=== PATIENT | female | born 1930 | race Caucasian/White ===

== ENCOUNTER 2018-06-23 16:16 | Observation (INO) ==
[2018-06-23] MEDS ORDERED: NS 500 ML IV SCH (19:45)
[2018-06-23 19:54] LABS: MCH 19.8 PG (27-31); MCHC 27.1 g/dL (33-37); MPV 9.4 FL (7.4-10.4); RBC 2.63 XMIL (4.2-5.4); RDW 18.3 % (11.5-14.5); WBC 5.64 X1000 (4.8-10.8)
[2018-06-23 19:55] LABS: HEMOGLOBIN 5.2 g/dL (12.0-16.0)
[2018-06-23 19:56] LABS: HEMATOCRIT 19.2 % (37.0-47.0)
[2018-06-24 00:32] LABS: URINE SOURCE CLEAN CATCH
[2018-06-24 00:42] LABS: BILIRUBIN URINE NEGATIVE (NEGATIVE); BLOOD URINE NEGATIVE (NEGATIVE); COLOR YELLOW; GLUCOSE URINE NEGATIVE (NEGATIVE); KETONE URINE NEGATIVE (NEGATIVE); LEUKOCYTES URINE MODERATE (NEGATIVE); NITRITE URINE POSITIVE (NEGATIVE); PROTEIN URINE TRACE mg/dL (NEGATIVE); SP GRAVITY URINE 1.019; TURBIDITY URINE CLEAR (CLEAR); UR EPITHELIAL CELLS <10 /HPF (<10); URINE BACTERIA 4+ /HPF; URINE RBC <10 /HPF (<10); URINE WBC 20-40 /HPF (<10); UROBILINOGEN URINE NORMAL (NORMAL)
[2018-06-24 09:00] LABS: BASO# 0.09 X1000 (0.0-0.2); BASO% 1.4 % (0.0-0.8); EOS% 3.2 % (0.0-10.0); HEMOGLOBIN 7.7 g/dL (12.0-16.0); LYMPH# 0.63 X1000 (1.2-3.4); LYMPH% 10.1 % (20.5-51.1); MCH 20.4 PG (27-31); MCHC 28.5 g/dL (33-37); MCV 71.6 FL (81-99); MONO# 0.64 X1000 (0.11-0.59); MONO% 10.3 % (1.7-9.3); MPV 9.2 FL (7.4-10.4); NEUT# 4.68 X1000 (1.4-6.5); PLT 312 X1000 (130-400); RBC 3.77 XMIL (4.2-5.4); RDW 18.1 % (11.5-14.5); WBC 6.24 X1000 (4.8-10.8)
[2018-06-24 09:22] LABS: EOS 4 % (1-10); LYMPHS 10 % (21-51); MONO 8 % (1-9); SEGS 78 % (42-75)
[2018-06-24 09:23] LABS: MICROCYTOSIS OCCASIONAL
[2018-06-24 09:24] LABS: HYPOCHROM 1+; STOMATOCYTES OCCASIONAL; TARGET CELLS OCCASIONAL
[2018-06-24 12:38] LABS: AGAP 9; ALB/GLOB RATIO 1.7; ALBUMIN 3.6 g/dL (3.5-5.0); ALKALINE PHOSPHATASE 81 U/L (32-104); BUN 17 mg/dL (8-22); CALCIUM 8.3 mg/dL (8.8-10.2); CHLORIDE 105 mmol/L (98-107); COSMO 277; CREATININE 0.7 mg/dL (0.5-0.9); ESTIMATED GFR > 60; GLUCOSE 91 mg/dL (70-104); GOT 13 U/L (10-30); GPT 7 U/L (10-36); POTASSIUM 4.2 mmol/L (3.5-5.1); SODIUM 138 mmol/L (136-145); TCO2 24 mmol/L (25-35); TOTAL BILIRUBIN 0.28 mg/dL (0.20-1.00); TOTAL PROTEIN 5.7 g/dL (6.3-8.3)
[2018-06-24 12:48] LABS: IRON SATURATION 3 %; TIBC 383 ug/dL; TOTAL IRON 11 ug/dL (49-151); UNBOUND IRON 372 ug/dL (112-346)
--- NOTE | 2018-06-24 15:44 | GASTROENTEROLOGY CONSULTATION ---
DATE: 06/24/2018 REASON FOR CONSULTATION: Anemia. HISTORY OF PRESENT ILLNESS: This is 88-year-old, white female patient with history of GI bleed and anemia. She was seen by me in 2013 with similar symptoms. She had undergone EGD and colonoscopy at that time. No significant pathology was seen except for polyps in the colon and diverticulosis. EGD was essentially unremarkable except for hiatal hernia and fundic gland polyps. She tells me that she has had blood transfusion approximately 3 years ago. Since then, she was doing quite well. Yesterday she had driven herself to her appointment and had her routine blood work done which showed severe anemia. She was admitted to hospital for blood transfusion. Patient tells me that she has not noticed any bright red blood per rectum. She has not had any melena. However, she has had occasional indigestion but denies nausea, vomiting. She has not had any hematemesis, coffee-grounds emesis. Denies any constipation or diarrhea. Denies any blood or mucus in her stool. She did feel tired but did not have any chest pain, shortness of breath or palpitations. Her appetite has been good. She has been eating well and she has not lost any weight. 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 PAST MEDICAL HISTORY: Significant for history of iron deficiency anemia, hypothyroidism, history of migraines and has had TIAs. Past Surgical History: Surgery appendectomy in 1994, hysterectomy, and joint replacement. MEDICATION: Prior to hospitalization she was on levothyroxine, metoprolol. ALLERGIES: Claims to be allergic to Keflex penicillin and Levaquin. SOCIAL HISTORY: Patient lives by herself. Does not smoke. Does not drink. Does no illicit drugs. FAMILY HISTORY: Noncontributory. REVIEW OF SYSTEMS: As per HPI as above. PHYSICAL EXAMINATION: Vital Signs: Temperature 98.1 degrees, pulse 87 per minute, breathing 16, blood pressure 137/50. HEENT: Atraumatic, normocephalic. Eyes: Conjunctivae is normal. Sclerae anicteric. Nares are patent. No discharge. Mouth: Buccal mucosa is moist. Throat is normal. Neck: Supple, no lymphadenopathy or thyromegaly. Chest: Clear to auscultate. Heart: Audible, no murmur. Abdomen: Full, soft, nontender. No mass was were noted. Bowel sounds are audible. Extremities: No pedal edema, cyanosis, clubbing was noted. SPOT REMOVER: Grossly intact. No sensory or motor deficit. LABORATORIES: Reviewed which showed hemoglobin yesterday was 5.2, after transfusion hemoglobin has come up to 7.7 and hematocrit came up from 19.2 to 27.0. WBC 6.24 platelets are 312,000, sodium 138, potassium 4.2, chloride 105, bicarb 24, BUN is 17 creatinine 0.7. Iron 11, TIBC 383, saturation is only 3%. Transaminases are normal. IMPRESSION: Profound anemia. Microcytic suggestive of chronic GI bleed. The patient has history of hiatal hernia. 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 Bleeding resulting in iron deficiency anemia. She has responded well to transfusion. She is in the process of receiving packed RBC now. She tells me she is feeling fine and when she came in she did not have any signs of active GI bleed. I would recommend to follow up with me as an outpatient and we proceed with EGD and if Addy's lesions are confirmed or other findings and further plans will be made. I have explained the findings and plan to the patient. She understands. All the pertinent questions answered. cc: MD Shamar Mcdonald MD
[2018-06-24 16:47] VITALS: BP 148/122
== END 2018-06-24 16:53 ==
LOC: DIRADM → 3N 16:16
PROVIDERS: ADMIT Internal Medicine Hematology & Oncology; ATTEND Internal Medicine Hematology & Oncology
CPT/HCPCS: 36430; 80053; 81001; 82948; 83540; 83550; 85025; 85027; 86850; 86900; 86901; 86920; 87077; 87088; G0378; G0379; J7040; P9016; XXXXX